=== PATIENT | male | born 1950 | race Two or more races ===

== ENCOUNTER 2018-12-21 17:35 | Emergency (ER) | payer BC, MEDICARE ==
[~2018-12-21] VITALS: Ht 172.7 cm; Wt 72.6 kg
[2018-12-21 19:56] VITALS: BP 122/82
[2018-12-21] MEDS ORDERED: KETOROLAC TROMETH 60MG/2ML VIAL IM ONE (20:00)
== END 2018-12-21 21:07 | disposition home or self-care (01) ==
LOC: ER 17:38
DX: S20.221A Contusion of right back wall of thorax, initial encounter (principal); W01.198A Fall on same level from slipping, tripping and stumbling with subsequent striking against other object, initial encounter; Y93.89 Activity, other specified; Y99.8 Other external cause status; Y92.096 Garden or yard of other non-institutional residence as the place of occurrence of the external cause
CPT/HCPCS: 71101; 96372; 99283; J1885